=== PATIENT | female | born 1940 | race Caucasian/White ===

== ENCOUNTER 2020-02-08 16:50 | Emergency (ER) | payer MEDICARE ==
--- NOTE | 2020-02-08 17:51 | CT ---
CT of thecervical spine: 02/08/2020 COMPARISON:None available HISTORY:Fall, trauma, pain TECHNIQUE: Serial axial CT imaging at2.5 mm intervals from theskull base through lung apices without contrast. Coronal and sagittal reformatted imaging obtained Findings:The imaged lung apices appear unremarkable. There is moderate degenerative change at the atlantoaxial interspace. 3 mm of anterolisthesis noted at C4-5. There is disc space narrowing with degenerative endplate morris e as well as anterior and posterior osteophyte at C5-6 and C6-7. There is mild anterolisthesis at C3-4 measuring approximately 2 mm. At C7-T1 there is anterolisthesis measuring approximately 3 mm. Th ere is multilevel bilateral facet and uncovertebral osteophyte formation, left greater than right, most prominent at C3-4 and C7-T1. No prevertebral soft tissue swelling. No displaced fracture or dislocation. The occipital condyles, t he dens, and the C1-2 articulation demonstrate no acute findings. Impression:Multilevel cervical spine degenerative change as described above. No displaced fracture or evidence of dislocation is seen within the cervical spine.
--- NOTE | 2020-02-08 18:01 | CT ---
CT of thepelvis: 02/08/2020 COMPARISON:None available HISTORY:Fall, trauma, pain TECHNIQUE: Serial axial CT imaging at2.5 mm intervals from thelower lumbar spine through the proximal femora without contrast. Coronal and sagittal reformatted imaging obtained Findings:Bilateral fat-containing inguinal hernias are present. There is a small fat-containing umbil ical hernia. The uterus appears surgically absent. There is diverticulosis of the descending colon and sigmoid colon. There is scattered atherosclerotic calcification of the imaged abdominal aorta as well as the arterial structures of the pelvis. Lower lumbar spine facet hypertrophy and disc space narrowing noted. There is no evidence for an acute fracture of the sacrum. There is no widening of the pubic symphysis or the sacroiliac joints. The femoral heads project normally over their respective acetabulum. No evidence for fracture of the superior or inferior pubic ramus on either side. No displaced fracture or evidence of dislocation. Impression:Incidental findings as detailed above. No acute fracture or evidence of dislocation is see n within the pelvis.
[2020-02-08] MEDS ORDERED: Acetaminophen 500 MG TAB ONE (19:56)
== END 2020-02-08 22:00 | disposition home or self-care (01) ==
LOC: MADERS 16:50
DX: S16.1XXA Strain of muscle, fascia and tendon at neck level, initial encounter (principal); S30.0XXA Contusion of lower back and pelvis, initial encounter; E03.9 Hypothyroidism, unspecified; K21.9 Gastro-esophageal reflux disease without esophagitis; J42 Unspecified chronic bronchitis; E11.22 Type 2 diabetes mellitus with diabetic chronic kidney disease; N18.1 Chronic kidney disease, stage 1; Z79.01 Long term (current) use of anticoagulants; Z79.899 Other long term (current) drug therapy; W18.30XA Fall on same level, unspecified, initial encounter
CPT/HCPCS: 72125; 72192